=== PATIENT | male | born 1960 | race Hispanic/Latino ===

== ENCOUNTER → 2022-04-05 | Outpatient (CLI) | payer OTHER | END | disposition home or self-care (01) | LOC: SHCH 08:32 | PROVIDERS: ATTEND Internal Medicine Cardiovascular Disease | DX: I20.9 Angina pectoris, unspecified (principal) | CPT/HCPCS: 93306 ==

== ENCOUNTER → 2022-04-21 | Outpatient (CLI) | payer OTHER ==
[~2022-04-21] MED LIST: REGADENOSON 0.4 MG/5 ML PF SYG IVP SCH
== END | disposition home or self-care (01) ==
LOC: SHCH 08:07
PROVIDERS: ATTEND Internal Medicine Cardiovascular Disease
DX: I20.9 Angina pectoris, unspecified (principal); I10 Essential (primary) hypertension; I49.3 Ventricular premature depolarization; E78.5 Hyperlipidemia, unspecified
CPT/HCPCS: 78452; 96374; 93017; J2785; A9500 ×2

== ENCOUNTER → 2024-07-05 | Outpatient (CLI) | payer OTHER ==
--- NOTE | 2024-07-08 08:15 | HMCSR ---
APPROVED REPORT Laterality: Bilateral Indications i65.23 Doppler Spectral Velocity Analysis PSV / EDVPSV / EDV ECA (R) 72 / cm/sECA (L) 85 / cm/s dICA (R) 68 / 30 cm/sdICA (L) 56 / 26 cm/s [place]rad (R) 63 / 23 cm/smICA (L) 54 / 28 cm/s pICA (R) 58 / 18 cm/spICA (L) 43 / 17 cm/s dCCA (R) 72 / 19 cm/sdCCA (L) 74 / 24 cm/s mCCA (R) 76 / 21 cm/smCCA (L) 80 / 20 cm/s pCCA (R) 65 / 19 cm/spCCA (L) 80 / 20 cm/s Vert (R) 30 / cm/sVert (L) 35 / cm/s Subl. (R) 154 / cm/sSubl. (L) 164 / cm/s ICA/CCA 0.89ICA/CCA 0.70 Technologist Impression Minimal plaque noted in the bilateral carotids. Right and Left ICA appear patent, without hemodynamic significance. Bilateral vertebral arteries appear antegrade. Conclusion Minimal plaque noted in the bilateral carotids, without hemodynamic significance. Bilateral vertebral arteries appear antegrade. Conclusion Minimal plaque noted in the bilateral carotids, without hemodynamic significance. Bilateral vertebral arteries appear antegrade.
== END | disposition home or self-care (01) ==
LOC: SHCH 11:15
PROVIDERS: ATTEND Internal Medicine Cardiovascular Disease
DX: I65.23 Occlusion and stenosis of bilateral carotid arteries (principal)
CPT/HCPCS: 93880